=== PATIENT | female | born 1970 | race Caucasian/White ===

== ENCOUNTER 2017-09-18 18:04 | Emergency (ER) | payer OTHER ==
--- NOTE | 2017-09-18 18:57 | EDPHY ---
H & P Time Seen by Provider: 09/18/17 18:45 HPI/ROS: CHIEF COMPLAINT: Headache fever and cough HISTORY OF PRESENT ILLNESS: Patient is had symptoms for the last 3 weeks. She describes occipital headache associated with fevers and chills a nonproductive cough. Symptoms moderate persistent, not better worse today than last week or the week before. Not better worse with anything. Headache was not thunderclap in onset. Does not have ear throat dental or visual symptoms. No recent injury or trauma. REVIEW OF SYSTEMS: Eye: no change in vision ENT: no sore throat Cardiac: no chest pain or syncope Pulmonary: Cough but no sputum or shortness of breath Abdomen: no vomiting, diarrhea, abdominal pain Musculoskeletal: no back pain or neck stiffness Skin: no rash Neuro: HPI Constitutional: HPI : no urinary symptoms A comprehensive 10 point review of systems is otherwise negative aside from elements mentioned in the history of present illness. PAST MEDICAL HISTORY: Negative No FHX venous thromboembolism. Social history: No recent foreign travel. Has been in [place] recently over spring, but no tick bites or other known insect exposures. General Appearance: Alert and conversant, cooperative. Eyes: No scleral icterus. ENT, Mouth: Normal mucous membranes. Respiratory: Normal respiratory effort, breath sounds equal, lungs are clear to auscultation. Cardiovascular: Regular rate and rhythm. Gastrointestinal: Abdomen is soft and non tender. Neurological: Alert, face symmetric, normal motor and sensory in extremities. Ambulatory, smiling, cheerful. Skin: Warm and dry, no rashes. No zoster on the scalp. Musculoskeletal: Normal range of motion of the neck, no meningeal signs. Psychiatric: Not agitated. Emergency Department course/MDM: Chest x-ray personally interpreted negative for pneumonia. 2001: Normal head CT per Dr. Roque. Lumbar puncture discussed and consented see procedure note for details. 2220: LP and urinalysis negative. Patient reassured, will be referred to [facility], symptomatic treatment over the weekend. At this point likely viral syndrome that does not require hospitalization or antibiotics. Declined pain medication or antipyretics in the emergency department. Declined pain medication and discharge. Smoking Status: Never smoked Constitutional: Initial Vital Signs Temperature (C) 38.6 C H 09/18/17 19:13 Heart Rate 112 H 09/18/17 19:13 Respiratory Rate 16 09/18/17 19:13 Blood Pressure 135/77 H 09/18/17 19:13 O2 Sat (%) 95 09/18/17 19:13 O2 Delivery Mode Room Air Allergies/Adverse Reactions: No Known Allergies Allergy (Verified 09/18/17 19:07) Home Medications: Medication Instructions Recorded NK [No Known Home Meds] 09/18/17 Medical Decision Making - Diagnostics Imaging Results: Imaging Impressions Chest X-Ray 09/18/17 18:57 Impression: No definite focal pneumonia. Head CT 09/18/17 18:57 Impression: 1. Normal CT brain without contrast. 2. No sinusitis. 3.Consider MRI of the brain, if there is continued clinical concern. Findings and recommendations discussed with Emergency Department physician, BRAD RAMIREZ at 20:02 hour, 09/18/2017. Final report concurs with initial preliminary interpretation. Imaging: Discussed imaging studies w/ call box wirer Radiologist, I viewed and interpreted images myself Procedures: 2049: Procedure: Lumbar puncture. Indication: headache and fever Risks benefits and alternatives to the procedure were discussed including but not limited to infection, headache, bleeding, and neurologic damage. Consent was obtained. The patient was prepped and draped in the usual sterile fashion. A time out was completed. The entry site was anesthetized with 1% lidocaine and a lumbar puncture was performed with a 23-gauge spinal needle. Approximately 4 mL of clear fluid was obtained. Opening pressure was not obtained. There were no complications. The procedure was performed by myself. Differential Diagnosis: Differential considered including but not limited to pneumonia, UTI, meningitis or encephalitis, sepsis. - Data Points Laboratory Results: Laboratory Results 09/18/17 19:15 09/18/17 19:15 09/18/17 09/18/17 09/18/17 21:35 20:50 19:40 WBC RBC Hgb Hct MCV MCH MCHC RDW Plt Count MPV Neut % (Auto) Lymph % (Auto) [place] % (Auto) Eos % (Auto) Baso % (Auto) Nucleat RBC Rel Count Absolute Neuts (auto) Absolute Lymphs (auto) Absolute Monos (auto) Absolute Eos (auto) Absolute Basos (auto) Absolute Nucleated RBC Immature Gran % Immature Gran # Sodium Potassium Chloride Carbon Dioxide Anion Gap BUN Creatinine Estimated GFR Glucose Calcium Beta HCG, Qual Urine Color YELLOW Urine Appearance CLEAR Urine pH 6.0 (5.0-7.5) Ur Specific [place] <= 1.005 (1.002-1.030) Urine Protein NEGATIVE (NEGATIVE) Urine Ketones NEGATIVE (NEGATIVE) Urine Blood 1+ H (NEGATIVE) Urine Nitrate NEGATIVE (NEGATIVE) Urine Bilirubin NEGATIVE (NEGATIVE) Urine Urobilinogen 0.2 EU EU (0.2-1.0) Ur Leukocyte Esterase NEGATIVE (NEGATIVE) Urine RBC 0-1 /hpf /hpf (0-3) Urine WBC NONE SEEN /hpf /hpf (0-3) Ur Epithelial Cells NONE SEEN /lpf /lpf (NONE-1+) Urine Glucose NEGATIVE (NEGATIVE) CSF Tube Number 4 CSF Appearance CLEAR (CLEAR) CSF Color COLORLESS (COLORLESS) CSF Supernatant COLORLESS (COLORLESS) CSF WBC 0 /mm3 /mm3 (0-5) CSF RBC 0 /mm3 /mm3 (0-0) CSF Comment CSF Glucose Pending CSF Total Protein Pending Influenza A,B Rapid NEGATIVE FOR FLU (NEGATIVE) 09/18/17 09/18/17 09/18/17 19:15 19:15 19:15 WBC 9.86 10^3/uL H 10^3/uL (3.80-9.50) RBC 3.98 10^6/uL L 10^6/uL (4.18-5.33) Hgb 11.8 g/dL L g/dL (12.6-16.3) Hct 35.8 % L % (38.0-47.0) MCV 89.9 fL fL (81.5-99.8) MCH 29.6 pg pg (27.9-34.1) MCHC 33.0 g/dL g/dL (32.4-36.7) RDW 13.6 % % (11.5-15.2) Plt Count 340 10^3/uL 10^3/uL (150-400) MPV 10.1 fL fL (8.7-11.7) Neut % (Auto) 75.7 % H % (39.3-74.2) Lymph % (Auto) 14.4 % L % (15.0-45.0) [place] % (Auto) 8.9 % % (4.5-13.0) Eos % (Auto) 0.5 % L % (0.6-7.6) Baso % (Auto) 0.3 % % (0.3-1.7) Nucleat RBC Rel Count 0.0 % % (0.0-0.2) Absolute Neuts (auto) 7.46 10^3/uL H 10^3/uL (1.70-6.50) Absolute Lymphs (auto) 1.42 10^3/uL 10^3/uL (1.00-3.00) Absolute Monos (auto) 0.88 10^3/uL H 10^3/uL (0.30-0.80) Absolute Eos (auto) 0.05 10^3/uL 10^3/uL (0.03-0.40) Absolute Basos (auto) 0.03 10^3/uL 10^3/uL (0.02-0.10) Absolute Nucleated RBC 0.00 10^3/uL 10^3/uL (0-0.01) Immature Gran % 0.2 % % (0.0-1.1) Immature Gran # 0.02 10^3/uL 10^3/uL (0.00-0.10) Sodium 137 mEq/L mEq/L (135-145) Potassium 4.1 mEq/L mEq/L (3.3-5.0) Chloride 99 mEq/L mEq/L (97-110) Carbon Dioxide 24 mEq/l mEq/l (22-31) Anion Gap 14 mEq/L mEq/L (8-16) BUN 14 mg/dL mg/dL (7-23) Creatinine 0.7 mg/dL mg/dL (0.6-1.0) Estimated GFR > 60 Glucose 99 mg/dL mg/dL (70-100) Calcium 8.5 mg/dL mg/dL (8.5-10.4) Beta HCG, Qual NEGATIVE Urine Color Urine Appearance Urine pH Ur Specific [place] Urine Protein Urine Ketones Urine Blood Urine Nitrate Urine Bilirubin Urine Urobilinogen Ur Leukocyte Esterase Urine RBC Urine WBC Ur Epithelial Cells Urine Glucose CSF Tube Number CSF Appearance CSF Color CSF Supernatant CSF WBC CSF RBC CSF Comment CSF Glucose CSF Total Protein Influenza A,B Rapid Medications Given: Discontinued Medications Sodium Chloride (Ns) 1,000 mls @ 0 mls/hr IV EDNOW ONE; Wide Open PRN Reason: Protocol Stop: 09/18/17 18:59 Last Admin: 09/18/17 19:39 Dose: 1,000 mls Sodium Chloride (Ns) 1,000 mls @ 0 mls/hr IV EDNOW ONE; Wide Open PRN Reason: Protocol Stop: 09/18/17 21:27 Last Admin: 09/18/17 21:35 Dose: 1,000 mls Departure - Departure Disposition: Home, Routine, Self-Care Clinical Impression: Fever Qualifiers: Fever type: unspecified Qualified Code(s): R50.9 - Fever, unspecified Condition: Good Instructions: Fever in Adults (ED) Referrals: Christine Escudero DO [Primary Care Provider] - As per Instructions Chin Zayas MD [Medical Doctor] - 09/22/17 (Please follow-up in the [facility] next week Thursday unless your symptoms have completely 100% resolved.)
[2017-09-18] MEDS ORDERED: NS 1,000 ML IV ONE ×2 (18:58→21:26)
[2017-09-18 19:24] LABS: PLATELET COUNT 340 10^3/uL (150-400)
[2017-09-18 23:04] VITALS: BP 107/54
== END 2017-09-18 22:34 | disposition home or self-care (01) ==
LOC: EDBD 18:04 → CED 18:04
PROC: 009U3ZX Drainage of Spinal Canal, Percutaneous Approach, Diagnostic (ICD-10-PCS; principal; 2017-09-18)
DX: R50.9 Fever, unspecified (principal); E86.9 Volume depletion, unspecified
CPT/HCPCS: 70450-PO; 71046-PO; 80048-PO; 81003-PO; 81015-PO; 84703-PO; 85025-PO; 87400-PO